=== PATIENT | female | born 1950 | race Caucasian/White ===

== ENCOUNTER 2021-03-15 08:50 | Emergency (ER) | payer OTHER ==
[~2021-03-15] VITALS: Ht 162.6 cm; Wt 52.2 kg
[2021-03-15] MEDS ORDERED: HYDROCODON-ACE1 EAC7 PO (11:13)
[2021-03-15 11:22] VITALS: BP 179/81
== END 2021-03-15 11:23 | disposition home or self-care (01) ==
LOC: M.ERS 08:50
DX: M25.561 Pain in right knee (principal); M25.551 Pain in right hip; F17.210 Nicotine dependence, cigarettes, uncomplicated; Z88.1 Allergy status to other antibiotic agents; Z88.8 Allergy status to other drugs, medicaments and biological substances

== ENCOUNTER 2021-09-13 09:49 | Emergency (ER) | payer OTHER ==
[~2021-09-13] VITALS: Ht 165.1 cm; Wt 53.5 kg
[~2021-09-13 09:49] MED LIST: HYDROCODON-ACE1 EAC7 PO
[2021-09-13] MEDS ORDERED: METHIMAZOLE10 MG PO (09:59)
[2021-09-13] MEDS ORDERED: TOPROL XL50 MG PO (10:00)
[2021-09-13] MEDS ORDERED: MELOXICAM15 MG PO (10:00)
[2021-09-13 11:01] LABS: ABSOLUTE BASOPHILS 0.1 thou/uL (0.0-0.2); ABSOLUTE LYMPHOCYTES 1.6 thou/uL (0.8-5.3); ABSOLUTE MONOCYTES 0.8 thou/uL (0.0-1.2); ABSOLUTE NEUTROPHILS 8.5 thou/uL (1.6-8.1); BASOPHILS 0.5 %; EOSINOPHILS 0.2 %; HEMATOCRIT 39.8 % (37.0-47.0); HEMOGLOBIN 13.7 gm/dL (12.0-15.0); LYMPHOCYTES 14.5 %; MCHC 34.6 g/dL (28.0-37.0); MCV 92.7 fL (80.0-100.0); MONOCYTES 7.4 %; MPV 6.2 fl. (7.2-11.1); NUCLEATED RBCS 0 /100WBC; PLATELET COUNT* 597 thou/uL (150-400); POLYS 77.4 %; RBC 4.29 mil/uL (4.20-5.00); RDW-CV 14.2 % (10.5-14.5)
[2021-09-13] MEDS ORDERED: PREDNISONE 20 M20 M1 PO (11:18)
[2021-09-13] MEDS ORDERED: HYDROCODON-ACE1 EAC7 PO (11:18)
[2021-09-13 11:20] LABS: CALCIUM 9.2 mg/dL (8.5-10.1); CREATININE 0.8 mg/dL (0.6-1.3); POTASSIUM 3.8 mmol/L (3.5-5.1)
[2021-09-13 11:26] LABS: ALBUMIN 3.6 g/dL (3.4-5.0); TOTAL BILIRUBIN 0.4 mg/dL (<0.1-1.0); TOTAL PROTEIN 7.9 g/dL (6.4-8.2)
[2021-09-13 11:31] VITALS: BP 134/72
== END 2021-09-13 11:32 | disposition home or self-care (01) ==
LOC: M.ERS 09:49
PROVIDERS: Family Medicine
DX: S83.91XA Sprain of unspecified site of right knee, initial encounter (principal); Z79.899 Other long term (current) drug therapy; Z88.0 Allergy status to penicillin; X58.XXXA Exposure to other specified factors, initial encounter; Y93.89 Activity, other specified; Y92.89 Other specified places as the place of occurrence of the external cause; Y99.8 Other external cause status

== ENCOUNTER → 2021-12-10 | Outpatient (CLI) | payer OTHER ==
[~2021-12-10] MED LIST changes: +MELOXICAM15 MG PO; +METHIMAZOLE10 MG PO; +PREDNISONE 20 M20 M1 PO; +TOPROL XL50 MG PO
== END ==
LOC: M.MRI 11:08
PROVIDERS: ATTEND Orthopaedic Surgery
DX: S83.241A Other tear of medial meniscus, current injury, right knee, initial encounter (principal); S83.281A Other tear of lateral meniscus, current injury, right knee, initial encounter; M25.461 Effusion, right knee; M17.11 Unilateral primary osteoarthritis, right knee; M25.761 Osteophyte, right knee; X58.XXXA Exposure to other specified factors, initial encounter; Y93.89 Activity, other specified; Y92.89 Other specified places as the place of occurrence of the external cause; Y99.8 Other external cause status; Z71.82 Exercise counseling